=== PATIENT | female | born 1955 | race Caucasian/White ===

== ENCOUNTER 2017-12-16 08:54 | Emergency (ER) | payer MEDICAID ==
[~2017-12-16] VITALS: Ht 160 cm; Wt 68.2 kg
[2017-12-16 08:58] VITALS: Ht 160 cm; Wt 68.2 kg
[2017-12-16] MEDS ORDERED: TIROSINT88 MCG PO (08:59)
[2017-12-16] MEDS ORDERED: ZOLOFT50 MG PO (08:59)
[2017-12-16 09:37] LABS: ALBUMIN 3.7 g/dL (3.4-5.0); ANION GAP 11.3 mmol/L (8-16); BILIRUBIN - TOTAL 0.39 mg/dL (0.2-1.3); CALCIUM 8.9 mg/dL (8.5-10.1); CARBON DIOXIDE 28.8 mmol/L (21.0-32.0); CREATININE - SERUM 1.4 mg/dL (0.6-1.3); POTASSIUM - SERUM 4.1 mmol/L (3.5-5.1); PROTEIN - SERUM 7.6 g/dL (6.4-8.2)
[2017-12-16 09:45] LABS: THYROID STIMULATING HORMONE 6.66 uIU/mL (0.36-3.74)
[2017-12-16 09:47] LABS: BASOPHILS 0.4 % (0-2); EOSINOPHILS 2.8 % (0-7); HEMATOCRIT 42.1 % (36.0-48.0); HEMOGLOBIN 13.8 g/dL (12-16); IMMATURE GRANULOCYTES 0.2 % (0-5); LYMPHOCYTES 23.1 % (15-50); MCH 29.8 pg (26.0-34.0); MCHC 32.8 g/dL (31.0-37.0); MCV 90.9 fL (80.0-100.0); MEAN PLATELET VOLUME 11.8 fL (7.4-10.4); MONOCYTES 8.6 % (2-11); NEUTROPHILS 64.9 % (40-80); PLATELET COUNT 205 10x3/uL (130-400); RBC 4.63 10x6/uL (4.00-5.40); WBC 4.7 10x3/uL (4.8-10.8)
[2017-12-16 11:21] LABS: APPEARANCE HAZY (CLEAR); BACTERIA MODERATE /hpf (NONE SEEN); BILIRUBIN NEGATIVE (NEGATIVE); COLOR DK YELLOW (YELLOW); EPITHELIAL CELLS 0-5 /hpf (0-5); GLUCOSE NEGATIVE (NEGATIVE); KETONE NEGATIVE (NEGATIVE); MUCUS <1+ /lpf (NONE SEEN); NITRITE NEGATIVE (NEGATIVE); PROTEIN TRACE mg/dL (NEGATIVE); RED CELLS - URINE 0-5 /hpf (0-5); SPECIFIC GRAVITY 1.015 (1.005-1.020); UROBILINOGEN NORMAL (NORMAL)
[2017-12-16 11:22] LABS: HYALINE CAST 0-5 /lpf (NONE SEEN)
[2017-12-16] MEDS ORDERED: MACROBID100 MG PO (11:26)
[2017-12-16] MEDS ORDERED: SYNTHROID100 MCG PO (11:26)
[2017-12-16 11:41] VITALS: BP 121/82
== END 2017-12-16 11:39 | disposition home or self-care (01) ==
LOC: D.ER 08:54
PROVIDERS: Family Medicine
DX: E03.9 Hypothyroidism, unspecified (principal); K02.9 Dental caries, unspecified; N39.0 Urinary tract infection, site not specified; F17.200 Nicotine dependence, unspecified, uncomplicated